=== PATIENT | female | born 1950 | race Caucasian/White ===

== ENCOUNTER 2020-05-11 11:42 | Emergency (ER) | payer MEDICARE ==
[2020-05-11 12:35] LABS: BASOPHIL 0.4 % (0-2); EOSINOPHIL 0.2 % (0-7); HCT 51.1 % (37.0-47.0); HGB 17.4 g/dl (12.5-16.0); LYMPHOCYTE 12.2 % (15-48); MCH 31.9 pg (25.0-31.0); MCHC 34.1 g/dL (32.0-36.0); MCV 93.6 fL (78.0-100.0); MONOCYTE 7.9 % (0-12); MPV 9.7 fL (6.0-9.5); NRBC 0; PLT 269 K/uL (150-400); RBC 5.46 M/uL (4.20-5.40); RDW 13.4 % (11.5-14.0); WBC 11.7 K/uL (4.0-10.5)
[2020-05-11 12:49] LABS: INR 1.04 (0.9-1.2); PROTHROMBIN TIME 12.9 SECONDS (11.4-13.6)
[2020-05-11 12:50] LABS: PTT 27.6 SECONDS (22.2-34.7)
[2020-05-11 12:51] LABS: D-DIMER 0.6 ug/mLFEU (0.00-0.41)
[2020-05-11 13:02] LABS: ALBUMIN 3.7 g/dL (3.4-5.0); BILIRUBIN - TOTAL 0.5 mg/dL (0.2-1.0); CREATININE 0.5 mg/dL (0.51-0.95); GLOBULIN (CALCULATION) 3.8 g/dL; TOTAL PROTEIN 7.5 g/dL (6.4-8.2)
[2020-05-11 13:11] LABS: PRO-BNP 193 pg/mL (<125)
== END 2020-05-11 16:10 | disposition left against medical advice (07) ==
LOC: FER 11:42
PROVIDERS: Emergency Medicine
DX: J96.10 Chronic respiratory failure, unspecified whether with hypoxia or hypercapnia (principal); R07.89 Other chest pain; J43.9 Emphysema, unspecified; R20.2 Paresthesia of skin; F17.200 Nicotine dependence, unspecified, uncomplicated; Z20.822 Contact with and (suspected) exposure to COVID-19; Z53.8 Procedure and treatment not carried out for other reasons
CPT/HCPCS: 36415; 36600; 71045; 71275; 80053; 82803; 83880; 84484; 85025; 85379; 85610; 85730; 87040; Q9967; U0002